=== PATIENT | male | born 1975 | race Caucasian/White ===

== ENCOUNTER 2019-01-26 14:16 | Outpatient (CLI) ==
--- NOTE | 2019-01-26 15:16 | CT ---
EXAM: CT abdomen pelvis without contra HISTORY: Abdominal pain COMPARISON: None TECHNIQUE: CT abdomen pelvis performed without intravenous contrast. Coronal and sagittal reformatt ed images obtained. FINDINGS: Lung bases clear. No free air. No acute abnormalities of the bones. Degenerative change in the spine. Evaluation organ parenchyma limited without contrast. Heart normal in size. Liver a ppears normal. Gallbladder appears normal. Pancreas appears normal. Spleen mildly enlarged. Adren als appear normal. No hydronephrosis or nephrolithiasis. 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 No calculi visualized in normal course of the ureters. Bladder unremarkable. Small bilateral fat containing inguinal hernias, slightly larger on the left. Small fat-containing perium bilical hernia. Aorta normal in caliber. Prostate normal in size. Small hiatal hernia. No dilated loops small bowel. Appendix not visualized. Colon unremarkable. No lymphadenopathy or ascites. IMPRESSION: 1. No acute inflammatory process identified in the abdomen pelvis. 2. Mild splenomegaly. 3. Small hiatal hernia. 4. Small bilateral fat containing inguinal hernias, slightly larger on the left. Small fat-containi ng periumbilical hernia.
--- NOTE | 2019-01-26 15:19 | US ---
Examination: Scrotal ultrasound. HISTORY: Acute epididymitis. Left testicular pain 1 week ago. COMPARISON: None. TECHNIQUE: Harrison-scale color/spectral Doppler images were obtained of the scrotum. FINDINGS: The right testicle measures 4.9 x 1.7 x 3.0 cm. The left testicle measures 4.4 x 1.7 x 2. 8 cm. Right testicular parenchyma appears homogeneous with intact color blood flow. The right epidid ymal head measures approximately 8 mm. There is a 4 mm epididymal body cyst or spermatocele noted. Left testicular parenchyma appears largely homogeneous with question of increased blood flow in jonelle rison to the right. The right epididymal head measures up to 1 cm contains multiple anechoic and com plex cystic foci measuring up to 6 mm in the epididymal head and 4 mm in the epididymal body. IMPRESSION: Question minimal asymmetric increased Doppler blood flow involving the left testicle. T his can be seen with orchitis. Correlate clinically. Otherwise, bilateral epididymal head and body cysts or spermatoceles with minimally complex cyst or s permatocele in the left epididymal head.
== END 2019-01-26 14:17 | disposition home or self-care (01) ==
LOC: RAD 14:16
PROVIDERS: ATTEND Family Medicine
DX: N45.1 Epididymitis (principal); R10.9 Unspecified abdominal pain